=== PATIENT | male | born 1995 | race African-American/Black ===

== ENCOUNTER 2018-04-08 19:39 | Emergency (ER) | payer OTHER ==
[~2018-04-08] VITALS: Ht 188 cm; Wt 83.9 kg
--- NOTE | ~2018-04-08 | EKG ---
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
[2018-04-08] MEDS ORDERED: IBUPROFEN 600600 M1 PO (20:51)
[2018-04-08 21:13] VITALS: BP 126/84
== END 2018-04-08 21:14 | disposition home or self-care (01) ==
LOC: ER 19:39
DX: R07.89 Other chest pain (principal); R06.02 Shortness of breath